=== PATIENT | male | born 1980 | race Two or more races ===

== ENCOUNTER 2024-07-08 02:18 | Inpatient (IN) | payer BC, OTHER ==
[~2024-07-08] VITALS: Ht 188 cm; Wt 120.5 kg
[2024-07-08 02:42] LABS: Urine Bacteria None Seen /hpf (None Seen); Urine WBC None Seen /hpf (0 - 3)
[2024-07-08 03:04] LABS: Basophils # (auto) 0.1 10 ^3/uL (0-0.2); Basophils % (auto) 0.7 % (0.0-2.0); Eosinophils # (auto) 0.6 10 ^3/uL (0-0.8); Eosinophils % (auto) 5.1 % (0.0-7.0); Hematocrit 48.9 % (41.0-53.0); Hemoglobin 16.7 g/dL (13.5-17.5); Lymphocytes # (auto) 4.7 10 ^3/uL (0.4-5.4); Lymphocytes % (auto) 39.8 % (10.0-50.0); Mean Corpuscular Hemoglobin 30.8 pg (28.0-32.0); Mean Corpuscular Hgb Conc. 34.1 g/dL (32.0-36.0); Mean Corpuscular Volume 90.4 fL (80.0-100.0); Monocytes # (auto) 0.9 10 ^3/uL (0-1.3); Monocytes % (auto) 7.4 % (0.0-12.0); Neutrophils # (auto) 5.6 10 ^3/uL (1.6-8.6); Platelet Count (auto) 283 10^3/uL (140-450); Red Blood Cells 5.41 10^6/uL (4.5-5.90); Red Cell Distribution Width 14.3 % (11.8-14.3); White Blood Cell 11.8 10^3/uL (4.4-10.8)
[2024-07-08 03:11] LABS: Urine Blood Negative /uL (Negative); Urine Clarity Clear (Clear); Urine Color Light-Yellow (Yellow); Urine Mucus FEW (None Seen); Urine Protein, UAD Negative (Negative); Urine Urobilinogen Normal (Negative); Urine pH 5.5 (5.0-9.0)
[2024-07-08 03:14] LABS: Alanine Aminotransferase 36 U/L (7-40); Albumin 4.8 g/dL (3.2-4.8); Alkaline Phosphatase 74 U/L (46-116); Anion Gap 7 (5-15); Aspartate Aminotransferase 13 U/L (13-40); Blood Urea Nitrogen 10 mg/dL (9-23); Calcium 9.8 mg/dL (8.7-10.4); Carbon Dioxide 27 mmol/L (20-31); Chloride 105 mmol/L (98-107); Glucose 113 mg/dL (74-106); Sodium 139 mmol/L (136-145)
[2024-07-08 03:15] LABS: Bilirubin, Total 0.9 mg/dL (0.2-1.0); Total Protein 7.7 g/dL (5.7-8.2)
[2024-07-08] MEDS: IOHEXOL 300 MG/ML 100ML BOTTLE IJ ONE (04:05)
[2024-07-08 04:24] VITALS: PULSE 80; RESP 18; O2SAT 97
[2024-07-08] MEDS: MORPHINE SULFATE 4 MG/ML SYR/VIAL IV ONE ×2 (05:00→09:04)
[2024-07-08] MEDS: ONDANSETRON HCL 4 MG/2 ML VIAL IV ONE (05:01)
[2024-07-08 07:45] VITALS: PULSE 64; RESP 16; O2SAT 99
[2024-07-08] MEDS ORDERED: MORPHINE SULFATE INJ 2 MG/ml SYRG IV PRN ×2 (12:30)
[2024-07-08] MEDS ORDERED: hydrALAZINE HCL 20 MG/ML VL IV PRN (12:30)
[2024-07-08] MEDS ORDERED: DEXTROSE (50%) 50ML SYRG IV PRN (12:30)
[2024-07-08] MEDS ORDERED: NITROGLYCERIN 0.4 MG SL TAB SL PRN (12:30)
[2024-07-08] MEDS ORDERED: MORPHINE SULFATE 4 MG/ML SYR/VIAL IV PRN (12:30)
[2024-07-08] MEDS ORDERED: ONDANSETRON HCL 4 MG/2 ML VIAL IV PRN (12:30)
[2024-07-08] MEDS: D5W/SOD CHLO 0.9% 1,000 ML IV SCH (12:40)
[2024-07-08 13:35] LABS: INR 1.03 (0.9-1.15); Partial Thromboplastin Time 27.4 SEC (24.5-34.5); Prothrombin Time 10.9 sec (9.3-11.8)
[2024-07-08 13:56] VITALS: BP 117/76; PULSE 68; RESP 16; TEMP 98.4; O2SAT 97
[2024-07-08] MEDS: SODIUM CHLORIDE 0.9% 1,000 ML IV SCH (14:34)
[2024-07-08] MEDS: PIPERACILLIN-TAZOB 3.375GM 100 ML IV SCH (14:35)
[2024-07-08 16:15] LABS: Amphetamine Screen, Urine Neg (NEGATIVE)
[2024-07-08 16:16] LABS: Barbiturate Scree,Urine Neg (NEGATIVE); Benzodiazephine Screen, Urine Neg (NEGATIVE); Cannabinoid Screen, Urine Neg (NEGATIVE); Cocaine Screen, Urine Neg (NEGATIVE); Opiate Scree,Urine Neg (NEGATIVE); Phencyclidine Screen, Urine Neg (NEGATIVE)
[2024-07-08 17:00] VITALS: BP 115/78; PULSE 87; RESP 16; TEMP 97.8; O2SAT 99
[2024-07-08] MEDS ORDERED: MULT-1018 PO (17:16)
[2024-07-08] MEDS ORDERED: CHOL20007 OR (17:17)
[2024-07-08] MEDS ORDERED: OMEG-20 PO (17:17)
[2024-07-08] MEDS: ACCU-CHEK COMFORT CURVE STRIP VI SCH (18:00)
[2024-07-08] MEDS: InsuLIN REG 1unit/0.01ml Soln (100units/ml) SC SCH (18:00)
[2024-07-08 20:00] VITALS: PULSE 65; RESP 16; O2SAT 96
[2024-07-08 22:00] VITALS: BP 121/79; PULSE 65; RESP 16; TEMP 97.4; O2SAT 96
[2024-07-09 01:00] VITALS: BP 115/75; PULSE 63; RESP 18; TEMP 97.4; O2SAT 97
[2024-07-09 05:00] VITALS: BP 132/75; PULSE 64; RESP 18; TEMP 97.5; O2SAT 95
[2024-07-09 08:19] LABS: Basophils # (auto) 0.1 10 ^3/uL (0-0.2); Basophils % (auto) 0.6 % (0.0-2.0); Eosinophils # (auto) 0.3 10 ^3/uL (0-0.8); Eosinophils % (auto) 3.9 % (0.0-7.0); Hemoglobin 16.6 g/dL (13.5-17.5); Lymphocytes # (auto) 2.3 10 ^3/uL (0.4-5.4); Lymphocytes % (auto) 27.6 % (10.0-50.0); Mean Corpuscular Hemoglobin 30.9 pg (28.0-32.0); Mean Corpuscular Hgb Conc. 34.5 g/dL (32.0-36.0); Mean Corpuscular Volume 89.5 fL (80.0-100.0); Monocytes # (auto) 0.6 10 ^3/uL (0-1.3); Monocytes % (auto) 7.2 % (0.0-12.0); Neutrophils # (auto) 5.2 10 ^3/uL (1.6-8.6); Neutrophils % (auto) 60.7 % (37.0-80.0); Nucleated Red Blood Cells % 0.1 %; Platelet Count (auto) 266 10^3/uL (140-450); Red Blood Cells 5.37 10^6/uL (4.5-5.90); Red Cell Distribution Width 13.9 % (11.8-14.3); White Blood Cell 8.5 10^3/uL (4.4-10.8)
[2024-07-09 09:00] VITALS: BP 125/82; PULSE 63; RESP 20; TEMP 97.8; O2SAT 99
[2024-07-09] MEDS ORDERED: LISI-275 PO (10:30)
[2024-07-09] MEDS ORDERED: SEMA2INJ3 SC (10:30)
[2024-07-09] MEDS ORDERED: TERB250T92 PO (10:30)
[2024-07-09] MEDS: LISINOPRIL 20 MG TAB PO SCH (10:31)
[2024-07-09 13:00] VITALS: BP 136/87; PULSE 58; RESP 20; TEMP 98.4; O2SAT 99
[2024-07-09 16:56] VITALS: BP 126/75; PULSE 68; RESP 20; TEMP 98; O2SAT 96
[2024-07-09 22:00] VITALS: BP 127/73; PULSE 65; RESP 17; TEMP 98.4; O2SAT 98
[2024-07-10] VITALS (7 sets, daily range): BP systolic 112–124; BP diastolic 72–82; PULSE 58–67; RESP 17–21; TEMP 97.7–98.7; O2SAT 98–99
[2024-07-10] MEDS ORDERED: ACE3T PO (15:33)
== END 2024-07-10 16:50 | disposition home or self-care (01) | DRG 395 ==
LOC: ER 02:18 → OVERFLOW 12:24 → WEST WING 14:10
PROVIDERS: ADMIT Hospitalist; ATTEND Hospitalist
DX: K40.90 Unilateral inguinal hernia, without obstruction or gangrene, not specified as recurrent (principal); I10 Essential (primary) hypertension; E11.9 Type 2 diabetes mellitus without complications; Z82.49 Family history of ischemic heart disease and other diseases of the circulatory system; Z79.4 Long term (current) use of insulin; Z79.899 Other long term (current) drug therapy
CPT/HCPCS: 36415; 74177; 76870; 80053; 80307; 81001; 82962; 83036; 83605; 85025; 85610; 85730; 93306; 93926; 96374; 96375; G0378; J1815; J2405; J2543